=== PATIENT | female | born 1975 | race Caucasian/White ===

== ENCOUNTER 2016-08-22 12:38 | Emergency (ER) | payer OTHER ==
[~2016-08-22] VITALS: Ht 160 cm; Wt 74.8 kg
[2016-08-22 13:05] VITALS: BP 134/92
[2016-08-22] MEDS ORDERED: LEVO0.155 PO (13:07)
--- NOTE | 2016-08-22 14:39 | NUR ---
Patient ambulated to bed 08.
--- NOTE | 2016-08-22 14:40 | NUR ---
Dr. Doherty evaluating patient at bedside.
--- NOTE | 2016-08-22 14:42 | NUR ---
40/F presents to ED for evaluation of right occiptal headache since yesterday. Pt c/o /10 pain, sharp, non radiating, worse with palpation. Patient denies any changes in vision. Patient states she has been taking aspirin with no improvement. Patient denies vomiting but c/o nausea. Patient is AOX4, skin warm and dry, normal in color for ethnicity. Denies dizziness. VSS. Daughter at bedside.
[2016-08-22] MEDS ORDERED: HYDROcodone/APAP 5/325 MG 1 TAB TAB PO ONE (14:45)
[2016-08-22] MEDS ORDERED: KETOROLAC 60 MG/2 ML VIAL IM ONE (14:45)
--- NOTE | 2016-08-22 15:31 | NUR ---
PT CONTINUES TO C/O PAIN AND STATES "IT'S STILL THE SAME." FACIAL GRIMACING AND RUBBING BACK OF HEAD. DR. SLAUGHTER MADE AWARE.
[2016-08-22 15:51] VITALS: BP 123/74
--- NOTE | 2016-08-22 15:52 | NUR ---
Patient discharged with v/s stable. Written and verbal after care instructions given and explained. Patient alert, oriented and verbalized understanding of instructions. Ambulatory with steady gait. All questions addressed prior to discharge. ID band removed. Patient advised to follow up with PMD. Rx of FIORICET AND MOTRIN given. Patient educated on indication of medication including possible reaction and side effects. Opportunity to ask questions provided and answered.
== END 2016-08-22 15:52 | disposition home or self-care (01) ==
LOC: MED 12:38
DX: G44.209 Tension-type headache, unspecified, not intractable (principal)
CPT/HCPCS: 82948; 96372; 99283; J1885

== ENCOUNTER 2021-04-30 22:41 | Emergency (ER) | payer BC, OTHER ==
[~2021-04-30] VITALS: Ht 162.6 cm; Wt 75.7 kg
[~2021-04-30 22:41] MED LIST: LEVO0.155 PO
[2021-04-30 22:45] VITALS: BP 130/81
--- NOTE | 2021-04-30 22:45 | NUR ---
TO [facility]
--- NOTE | 2021-04-30 22:50 | NUR ---
SEEN AND EXAMINED BY JOSELIN
[2021-04-30] MEDS ORDERED: ACETAMINOPHEN EXTRA STRENGTH 500 MG TAB PO ONE (22:55)
--- NOTE | 2021-04-30 23:00 | NUR ---
SWABS FOR STACY, INFLUENZA SENT TO LAB
[2021-05-01] MEDS ORDERED: ALBU0.0912 IH (00:40)
[2021-05-01] MEDS ORDERED: AZIT250T4 PO (00:40)
[2021-05-01 01:05] VITALS: BP 130/81
--- NOTE | 2021-05-01 01:05 | NUR ---
PT SEEN BT ER MD NO NURSING INTERVENTIONS NEEDED
--- NOTE | 2021-05-01 01:05 | NUR ---
Patient discharged with v/s stable. Written and verbal after care instructions given and explained. Patient alert, oriented and verbalized understanding of instructions. Ambulatory with steady gait. All questions addressed prior to discharge. ID band removed. Patient advised to follow up with PMD. Rx of ALBUTEROL SULFATE AND AZITHROMYCIN given. Patient educated on indication of medication including possible reaction and side effects. Opportunity to ask questions provided and answered. A/OX4, UNLABORED BREATHING WITH STEADY CHEST RISE AND FALL, STEADY GAIT, AND CALM DEMEANOR.
== END 2021-05-01 01:05 | disposition home or self-care (01) ==
LOC: MED 22:41
DX: U07.1 COVID-19 (principal)
CPT/HCPCS: 71045; 99284